=== PATIENT | female | born 1945 | race Caucasian/White ===

== ENCOUNTER → 2021-01-23 02:01 | Outpatient (CLI) | payer MEDICARE, SELFPAY ==
[2021-01-23 19:56] LABS: SARS-CoV-2 RNA PCR Negative
== END ==
PROVIDERS: PCP Family Medicine; Visit Provider Internal Medicine Gastroenterology
DX: Z01.812 Encounter for preprocedural laboratory examination (principal); Z20.822 Contact with and (suspected) exposure to COVID-19
CPT/HCPCS: C9803; U0003; U0005

== ENCOUNTER 2021-01-26 02:54 | Day surgery (SDC) | payer MEDICARE, SELFPAY ==
[2021-01-19 10:24] VITALS: BMI 29.2
[2021-01-26 10:10] VITALS: BP 138/93; PULSE 102; RESP 20; TEMP 36.2; O2SAT 98
[2021-01-26] MEDS: LACTATED RINGERS 1,000 ML 150 ML IV CONT (10:25)
--- NOTE | 2021-01-26 10:26 | WPDGICN ---
Assessment and Plan Assessment and plan (1) Rectal bleeding: Code(s): K62.5 - Hemorrhage of anus and rectum Status: Acute Assessment and Plan: Patient has had rectal/ lower GI bleeding. The etiology is unclear. Somewhat suspicious for hemorrhoidal or diverticular bleeding. Other lesions cannot be excluded. Plan to proceed with colonoscopy to assess more thoroughly. Further recommendations will be given after endoscopy. (2) Abdominal pain: Code(s): R10.9 - Unspecified abdominal pain Status: Acute Assessment and Plan: Patient had brief poorly described abdominal discomfort associated with a time period where she had blood in her stools. The etiology of this remains unclear. Pain is subsequently abated. Will see if any findings on colonoscopy correlate with this discomfort. Fiber stool softeners may be the best long-term approach at this time. GI Consult Note Consult date/time: 01/26/21 10:26 HPI: Merle Benitez is a 75 year old female Presents for evaluation of rectal/lower GI bleeding. Patient in usual state of health till the middle of January on 01/11 in for several days subsequently, where she noticed dark stool on her tissue paper. There was some dark blood in her bowel movements. She had vague abdominal discomfort associated with this. She denies any fever. She has had no weight loss. Her bowel movements have returned to normal in the interim. patient has not had bleeding previously and it has abated in have returned to normal subsequently. Review of Systems Review of Systems: All systems reviewed & are unremarkable except as noted in HPI and below PMFSH Past Medical History Medical History Family history of ischemic heart disease and other diseases of the circulatory system Family history of malignant neoplasm of breast Heme + stool Obesity (BMI 30.0-34.9) Family History Family History Sibling Patient's brother is in good health Family history of malignant neoplasm Family history of lung cancer Mother Acute myocardial infarction, Onset Age: 88 Father Family history of pancreatic cancer, Onset Age: 79 Other Family history of ischemic heart disease and other diseases of the circulatory system Family history of malignant neoplasm of breast Social History Social History Smoking status: Never smoker Alcohol intake: never Substance use: never Substance use type: does not use Living arrangements: with family Meds Home Medications and Allergies Home Medications Medication Instructions Recorded Confirmed Type B tnfqufv-[id number] acid-Zn 1 tablet PO DAILY 01/19/21 01/19/21 History amlodipine 5 mg PO DAILY 01/19/21 01/19/21 History bupropion HCl 150 mg PO DAILY 01/19/21 01/19/21 History cholecalciferol (vitamin D3) 25 mcg PO EVERY OTHER DAY 01/19/21 01/19/21 History [Vitamin D3] metoprolol succinate 25 mg PO DAILY 01/19/21 01/19/21 History Allergies Allergy/AdvReac Type Severity Reaction Status Date / Time gabapentin Allergy Severe Rash Verified 01/26/21 10:09 meperidine Allergy Severe Anaphylactic Verified 01/26/21 10:09 Shock Sulfa (Sulfonamide Allergy Severe Anaphylactic Verified 01/26/21 10:09 Antibiotics) Shock benazepril Allergy Intermediate cough Verified 01/26/21 10:09 phenazopyridine Allergy Intermediate Unknown Verified 01/26/21 10:09 suvorexant AdvReac Severe nightmares Verified 01/26/21 10:09 trazodone AdvReac Severe nightmares Verified 01/26/21 10:09 irbesartan AdvReac Intermediate headache Verified 01/26/21 10:09 penicillin V AdvReac Intermediate Hyperactive Verified 01/26/21 10:09 Penicillins AdvReac Intermediate Hyperactive Verified 01/26/21 10:09 Vital Signs Vital Signs - 24 hr 01/26/21 10:10 Temperature 97.2 F L P
--- NOTE | 2021-01-26 10:35 | WPDANESEPPF ---
Anes - Initial Pre Proc Eval Procedure: Operation Date: 01/26/21 12:45 Proposed Procedures p Colonoscopy - Diogo Bragg MD Date/Time: 01/26/21 10:35 Surgeon: Diogo Bragg MD Pre Op Diagnosis: rectal bleed Patient Data Age: 75 Gender: F Height: 5 ft 6 in Weight: 79.6 kg Last Vital Signs Temp 97.2 F L 01/26/21 10:10 Pulse 102 H 01/26/21 10:10 Resp 20 01/26/21 10:10 BP 138/93 H 01/26/21 10:10 Pulse Ox 98 01/26/21 10:10 Allergies Allergy/AdvReac Type Severity Reaction Status Date / Time gabapentin Allergy Severe Rash Verified 01/26/21 10:09 meperidine Allergy Severe Anaphylactic Verified 01/26/21 10:09 Shock Sulfa (Sulfonamide Allergy Severe Anaphylactic Verified 01/26/21 10:09 Antibiotics) Shock benazepril Allergy Intermediate cough Verified 01/26/21 10:09 phenazopyridine Allergy Intermediate Unknown Verified 01/26/21 10:09 suvorexant AdvReac Severe nightmares Verified 01/26/21 10:09 trazodone AdvReac Severe nightmares Verified 01/26/21 10:09 irbesartan AdvReac Intermediate headache Verified 01/26/21 10:09 penicillin V AdvReac Intermediate Hyperactive Verified 01/26/21 10:09 Penicillins AdvReac Intermediate Hyperactive Verified 01/26/21 10:09 Home Medications Medication Instructions Recorded Confirmed Type B eltztxh-R-drayu acid-Zn 1 tablet PO DAILY 01/19/21 01/19/21 History amlodipine 5 mg PO DAILY 01/19/21 01/19/21 History bupropion HCl 150 mg PO DAILY 01/19/21 01/19/21 History cholecalciferol (vitamin D3) 25 mcg PO EVERY OTHER DAY 01/19/21 01/19/21 History [Vitamin D3] metoprolol succinate 25 mg PO DAILY 01/19/21 01/19/21 History Patient hx anesthesia problems: none Family hx anesthesia problems: none PMFSH Past Medical History Medical History Family history of ischemic heart disease and other diseases of the circulatory system Family history of malignant neoplasm of breast Heme + stool Obesity (BMI 30.0-34.9) Family History Family History (Reviewed 01/18/21 @ 10:04 by Angelica Sidhu [facility]) Sibling Patient's brother is in good health Family history of malignant neoplasm Family history of lung cancer Mother Acute myocardial infarction, Onset Age: 88 Father Family history of pancreatic cancer, Onset Age: 79 Other Family history of ischemic heart disease and other diseases of the circulatory system Family history of malignant neoplasm of breast Social History Social History (Reviewed 01/18/21 @ 10:04 by Angelica Sidhu [facility]) Smoking status: Never smoker Alcohol intake: never Substance use: never Substance use type: does not use Living arrangements: with family Madays - Brie Final PreProcedure Day of Procedure 01/26/21 10:35 Patient weight: obese Lungs: clear to auscultation Airway: Mallampati scale class II Neurological: alert and oriented Last oral intake: >/= 8 hours ASA classification: III Emergent: no Anesthetic plan: proceed Anesthesia type and monitoring: general GIVS and standard monitoring Informed Consent: The patient's anesthetic plan and its attendant risks and benefits were discussed with the patient/family/POA. Questions were solicited and answers provided to the satisfaction of the patient/family/POA.
[2021-01-26 11:03] VITALS: BP 100/60; PULSE 78; RESP 18; O2SAT 98
[2021-01-26 11:13] VITALS: BP 99/65; PULSE 72; RESP 18; O2SAT 100
[2021-01-26 11:23] VITALS: BP 107/69; PULSE 71; RESP 18; O2SAT 100
== END 2021-01-26 11:29 | disposition home or self-care (01) ==
PROVIDERS: PCP Family Medicine; Visit Provider Internal Medicine Gastroenterology
PROC: 0DJD8ZZ Inspection of Lower Intestinal Tract, Via Natural or Artificial Opening Endoscopic (ICD-10-PCS; CPT 45378; principal; 2021-01-26 12:45)
DX: K62.5 Hemorrhage of anus and rectum (principal); D12.2 Benign neoplasm of ascending colon; E66.9 Obesity, unspecified; K64.8 Other hemorrhoids
CPT/HCPCS: 45385; 88305; C9803; J2704; J7120; U0003; U0005

== ENCOUNTER → 2021-08-04 12:06 | Outpatient (CLI) | payer MEDICARE, SELFPAY ==
--- NOTE | ~2021-08-04 | US_ITS ---
EXAMINATION: US renal BI EXAM DATE: 08/04/2021 12:24 INDICATION: I12.9 - Hypertensive chronic kidney disease with stage 1 TECHNIQUE: Multiple grayscale and Doppler images of the kidneys were obtained (by a technologist who performed the scan) and subsequently reviewed. There is no prior study for comparison. FINDINGS: Right kidney: There is normal contour and echogenicity. It measures 9.7 x 4.0 x 4.5 centimeters. Th ere are no focal renal lesions identified. There is no hydronephrosis. Left kidney: There is normal contour and echogenicity. It measures 9.2 x 4.5 x 4.0 centimeters. The re are no focal renal lesions identified. There is no hydronephrosis. Bladder unremarkable. IMPRESSION: 1. Sonographically unremarkable kidneys. Reviewed, dictated and finalized at location A. [employer] MAINTENANCE SUPERVISOR
== END ==
PROVIDERS: PCP Family Medicine; Visit Provider Family Medicine
DX: I12.9 Hypertensive chronic kidney disease with stage 1 through stage 4 chronic kidney disease, or unspecified chronic kidney disease (principal); N18.30 Chronic kidney disease, stage 3 unspecified
CPT/HCPCS: 76775

== ENCOUNTER → 2021-12-14 11:32 | Outpatient (CLI) | payer MEDICARE, SELFPAY ==
--- NOTE | ~2021-12-14 | DEXA_ITS ---
Bone Density Report Name: BERNICE CULP Age: 76 Sex: Female Ethnicity: White Date of : 1945 Indication: postmenopausal; screening for osteoporosis; height loss; prior fracture; Referring Provider: AMITA ESTEVEZ Study: Bone densitometry was performed. Exam Date: December 14, 2021 Accession number: [id number] Bone Density: Region BMD T-score Z-score Classification AP Spine (L1-L4) 0.867 -1.6 0.8 Osteopenia Femoral Neck (Left) 0.644 -1.8 0.3 Osteopenia Total Hip (Left) 0.797 -1.2 0.6 Osteopenia Femoral Neck (Right) 0.675 -1.6 0.5 Osteopenia Total Hip (Right) 0.786 -1.3 0.5 Osteopenia Total Hip Mean 0.792 -1.3 0.6 Osteopenia World Health Organization criteria for BMD impression classify patients as: Normal (T-score at or above -1.0), Osteopenia (T-score between -1.0 and -2.5), or Osteoporosis (T-score at or below -2.5). 10-year Fracture Risk(1): Major Osteoporotic Fracture 19% Hip Fracture 4.2% Reported Risk Factors: [place] (), Neck BMD=0.644, BMI=28.1, previous fracture (1) FRAX(R) Version 3.08. Fracture probability calculated for an untreated patient. Fracture probability may be lower if the patient has received treatment. Clinical Information Provided by Patient: Has had a low trauma fracture Has used the following medications: Vitamin D Patient maximum height was 66.0 Menopause Age: 53 Does not regularly consume dairy products Drinks caffeinated beverages Onset of menses at age 13 Number of children 5 Impression: The patient has low bone mass, based on the Left Femoral Neck T-score. The patient has an estimated ten-year risk of hip fracture of 4.2% and an estimated ten-year risk of major fracture of 19%, based on the WHO FRAX algorithm. The patient has risk factors, including: previous fracture. Discussion: BONE DENSITY IS LOW AT ONE OR MORE SKELETAL SITES. THE PATIENT'S BMD AND CLINICAL RISK FACTORS CONTRIBUTE TO THIS PATIENT'S INCREASED RISK OF FRACTURE. This patient's lowest T-score is low at one or more skeletal sites. It meets the World Health Organization's (WHO) criteria for ?low bone mass? (T-score between -1.0 and -2.5). The patient's 10-year risk of hip fracture as calculated by FRAX exceeds the threshold where pharmacological therapy is recommended by the National Osteoporosis Foundation (NOF). However, all treatment decisions require clinical judgment and consideration of individual patient factors, including patient preferences, comorbidities, previous drug use, risk factors not captured in the FRAX model (e.g., frailty, falls, vitamin D deficiency, increased bone turnover, interval significant decline in bone density) and possible under or overestimation of fracture risk by FRAX. The patient should follow a healthful lifestyle (good nutrition with adeq
--- NOTE | ~2021-12-14 | MM_ITS ---
EXAMINATION: MM screening coco BI w narayan HISTORY: Screening mammogram TECHNIQUE: Craniocaudal and mediolateral oblique 3-D tomosynthesis images were obtained and synthetic 2-D images were generated. CAD analysis was submitted and interpreted. COMPARISON: 12/05/2016 bilateral screening mammogram BREAST PARENCHYMAL COMPOSITION: There are scattered areas of fibroglandular density. FINDINGS: There is no evidence of suspicious mass, calcification, or architectural distortion to sugg est malignancy in either breast. There has been no suspicious interval change. IMPRESSION: 1. No mammographic evidence of malignancy. 2. Recommend routine screening mammography in one year. BI-RADS Category 1: Negative Reviewed, dictated and finalized at location A.
== END ==
PROVIDERS: PCP Family Medicine; Visit Provider Family Medicine
DX: Z12.31 Encounter for screening mammogram for malignant neoplasm of breast (principal); Z78.0 Asymptomatic menopausal state; M85.88 Other specified disorders of bone density and structure, other site; M85.852 Other specified disorders of bone density and structure, left thigh; M85.851 Other specified disorders of bone density and structure, right thigh
CPT/HCPCS: 77063; 77067; 77080

== ENCOUNTER 2022-01-07 07:21 | Outpatient (CLI) | payer MEDICARE, SELFPAY ==
--- NOTE | 2022-01-12 13:51 | WPDHOMESLEEP ---
Sleep Study - Home Unattended Date of Study: 01/07/22 Ordering Provider: Hever Cartagena APRN Interpreting Provider: Nae Casarez MD Home Sleep Study Type: Apnea Link Air Height: 1.63 m Weight: 75.16 kg Body Mass Index: 28.4 Neck Circumference (inches): 14 [place]: 3 Reason for Sleep Study Poor quality sleep that occurred after menopause, no improvement with Belsomra or melatonin Sleep History Merle Benitez is a 76 year old female with poor quality sleep that occurred after menopause. In 2007 she sought medical help. She has used L summer 10 mg at night which did not help her and melatonin in 2017 which did not help. She wakes up throughout the night including the focus puller hours. She follows good sleep hygiene by keeping regular bedtime, she does not eat within 3 hours before bedtime, her room is cool, she is exposed to [place] in the morning, she walks on an exercise trail and turns off her electronics at 8:00 p.m.. She has excellent sleep hygiene. She does not awaken from sleep feeling short of breath or awaken at night with heartburn the [place] or coughing. She rarely snores. She does not snore loudly enough that others complain about it. She occasionally has trouble sleeping with a cold. She does not wake up gasping for breath at night. She does not have breathing problems at night observed by others. She does not sweat excessively at night. She rarely notices her heart pounding or beating irregularly during the night. She occasionally falls asleep during the day. She rarely falls asleep involuntarily. She does not fall asleep while driving. she does not have loss of muscle tone with strong emotion or daytime difficulties due to excessive sleepiness. She does not feel paralyzed on waking falling asleep. She rarely has vivid dreamlike scenes upon awakening or falling asleep. She does not feel afraid of going to sleep. She rarely has nightmares. She occasionally remembers her dreams, occasionally has racing thoughts. She occasionally has feelings of sadness or depression. She frequently has anxiety. She does not have muscular tension, does not notice parts of her body jerking and does not kick at night. She does not have crawling and aching feelings in her legs. She occasionally has leg pain at night. She does not have morning jaw pain. She rarely grinds her teeth during sleep. She occasionally has bothered by pain during the day and occasionally awakened by pain at night. She frequently wakes up feeling stiff in the morning with sore achy muscles and pain in the neck and spine. She has fatigue, memory problems and insomnia. Normal bedtime is 9:00 p.m. taking 15-20 minutes fall asleep typically waking twice during the night. When she awakens she stays awake between 10 minutes and 4 hours. When she is awake at night she will list and relaxing music. If she is fully awake she will read. She wakes the morning at 3:00 a.m.. She estimates getting 4-5 hours of sleep on an average night. She feels physically tired and sick with pain constantly which she attributes to her poor sleep. She reports that she does not take naps. She reports that she is refreshed sometimes after a 10-15 minute nap. She is usually drowsy for 2 hours after waking. She feels better in the afternoon compared other times of day. Habits: Never smoked tobacco. Caffeine 6 oz a day. No alcohol or recreational drugs. [facility] Past Medical History Medical History (Updated 01/12/22 @ 14:02 by Nae Casarez MD) Abdominal pain Anxiety disorder, unspecified CKD (chronic kidney disease) stage 3, GFR 30-59 ml/min Essential (primary) hypertension Family history of ischemic heart disease and other diseases of the circulatory system Family history of malignant neoplasm of breast Heme + stool Mixed hyperlipidemia Rectal bleeding Surgical History Surgical History Hx of colonoscopy 5.25.
[2022-01-12 14:07] VITALS: BMI 28.4
== END 2022-01-11 10:09 | disposition home or self-care (01) ==
LOC: ANHCSM 07:22
PROVIDERS: PCP Family Medicine; Visit Provider Nurse Practitioner Family
DX: G47.9 Sleep disorder, unspecified (principal); G47.33 Obstructive sleep apnea (adult) (pediatric)
CPT/HCPCS: 95806

== ENCOUNTER 2022-01-19 09:02 | Outpatient (CLI) | payer MEDICARE, SELFPAY ==
--- NOTE | 2022-02-01 15:04 | WPDSLEEPSTUD ---
Sleep Study Date of Study: 01/19/22 Ordering Provider: Hever Cartagena APRN Interpreting Physician: Andreina Rosas, Sleep Study Type: CPAP Titration Height: 1.65 m Weight: 74.843 kg Body Mass Index: 27.4 Neck Circumference (inches): 14 [place]: 5 Reason for Sleep Study The patient had an HSAT on 01/07/2022 that showed an AHI of 19.1 with desaturation down to 77%. It was recommended that she have a PAP Titration study. Sleep History Merle Benitez is a 76 year old? female with poor quality sleep that occurred after menopause.? In 2007 she sought medical help.? She has used Belsomra 10 mg at night which did not help her and melatonin in 2016 which did not help.? 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 She follows good sleep hygiene by keeping regular bedtime, she does not eat within 3 hours before bedtime, her room is cool, she is exposed to [place] in the morning, she walks on an exercise trail and turns off her electronics at 8:00 p.m..? She has excellent sleep hygiene.? She does not awaken from sleep feeling short of breath or awaken at night with heartburn the [place] or coughing.? She rarely snores.? She does not snore loudly enough that others complain about it.? She occasionally has trouble sleeping with a cold.? She does not wake up gasping for breath at night.? She does not have breathing problems at night observed by others.? She does not sweat excessively at night.? She rarely notices her heart pounding or beating irregularly during the night.? She occasionally falls asleep during the day.? She rarely falls asleep involuntarily.? She does not fall asleep while driving. ? She does not have loss of muscle tone with strong emotion or daytime difficulties due to excessive sleepiness.? She does not feel paralyzed on waking falling asleep.? She rarely has vivid dreamlike scenes upon awakening or falling asleep.? She does not feel afraid of going to sleep.? She rarely has nightmares.? She occasionally remembers her dreams, occasionally has racing thoughts.? She occasionally has feelings of sadness or depression.? She frequently has anxiety.? She does not have muscular tension, does not notice parts of her body jerking and does not kick at night.? She does not have crawling and aching feelings in her legs.? She occasionally has leg pain at night.? She does not have morning jaw pain.? She rarely grinds her teeth during sleep.? She occasionally has bothered by pain during the day and occasionally awakened by pain at night.? She frequently wakes up feeling stiff in the morning with sore achy muscles and pain in the neck and spine.? She has fatigue, memory problems and insomnia. Normal bedtime is 9:00 p.m. taking 15-20 minutes fall asleep typically waking twice during the night.? When she awakens she stays awake between 10 minutes and 4 hours.? When she is awake at night she will list and relaxing music.? If she is fully awake she will read.? She wakes the morning at 3:00 a.m..? She estimates getting 4-5 hours of sleep on an average night. ? She feels physically tired and sick with pain constantly which she attributes to her poor sleep.? ? She reports that she does not take naps.? She reports that she is refreshed sometimes after a 10-15 minute nap.? She is usually drowsy for 2 hours after waking.? She feels better in the afternoon compared other times of day. Habits: ? Never smoked tobacco.? Caffeine 6 oz a day.? No alcohol or recreational drugs. [facility] Past Medical History Medical History Abdominal pain Anxiety disorder, unspecified CKD (chronic kidney disease) stage 3, GFR 30-59 ml/min Essential (primary) hypertension Family history of ischemic heart disease and other diseases of the circulatory system Family history of malignant neoplasm of breast Heme + stool Mixed hyperlipidemia Rectal bleeding Surgical History Surgical History (Reviewed 02/01/22 @ 15:07 by Valerie
[2022-02-01 17:21] VITALS: BMI 27.4
== END 2022-01-20 05:35 | disposition home or self-care (01) ==
LOC: ANHCSM 09:02
PROVIDERS: PCP Family Medicine; Visit Provider Nurse Practitioner Family
DX: G47.33 Obstructive sleep apnea (adult) (pediatric) (principal)
CPT/HCPCS: 95811

== ENCOUNTER → 2023-02-28 11:07 | Outpatient (CLI) | payer MEDICARE, SELFPAY ==
--- NOTE | ~2023-02-28 | MMUS_ITS ---
EXAMINATION: MM diagnostic coco BI w narayan, US breast BI complete HISTORY: Right lateral breast intermittent pain for one to 2 weeks. Crest CM of discharge from left n ipple for 2 to 3 years. Unexplained 20 pound weight loss. TECHNIQUE: Bilateral full field ML, MLO and CC and spot left MLO 3-D tomosynthesis images were perfor med and synthetic 2-D images were generated. Magnification views of both breasts. Rolled medial crani ocaudal and rolled lateral craniocaudal views of right breast. CAD analysis was submitted and interpr eted. High resolution complete bilateral breast ultrasound examination including all 4 quadrants and subareolar areas was performed. COMPARISON: December 14, 2021, December 05, 2016 bilateral screening mammogram examinations BREAST PARENCHYMAL COMPOSITION: There are scattered areas of fibroglandular density. FINDINGS: MAMMOGRAPHIC FINDINGS: Scattered occasional bilateral benign microcalcifications. No suspicious mass or architectural distor tion, malignant calcification, skin thickening or retraction or significant new or developing density is detected. ULTRASOUND: No suspicious mass or shadowing of either breast is evident. Right breast: 3:00 3 cm from nipple: 3.2 x 3.1 mm circumscribed septated hypoechoic or sonolucent lesion without in ternal vascularity or posterior shadowing, likely benign 6:00 1 cm from nipple: Parallel circumscribed 3.4 x 8.5 x 7.5 mm complex lesion with through transmis susannah, no internal vascularity, likely a benign lesion 8:00 4 cm from nipple: Approximately 2 x 3 x 4 mm parallel circumscribed sonolucency consistent with small cyst Left breast: 2:00 8 cm from nipple: 1.7 x 2.5 mm cyst IMPRESSION: 1. Benign findings 2. Routine annual mammographic screening is recommended BI-RADS Category 2: Benign finding(s). Reviewed, dictated and finalized at location A. IMPRESSION: 1. Benign findings 2. Routine annual mammographic screening is recommended BI-RADS Category 2: Benign finding(s).
== END ==
PROVIDERS: PCP Family Medicine; Visit Provider Physician Assistant
DX: N64.4 Mastodynia (principal)
CPT/HCPCS: 76641; 77062; 77066; G0279

== ENCOUNTER → 2023-03-21 09:09 | Outpatient (CLI) | payer MEDICARE, SELFPAY ==
--- NOTE | ~2023-03-21 | CT_ITS ---
EXAMINATION: CT abdomen pelvis wo con DATE: 03/21/2023 09:26 INDICATION: Periumbilical pain, right inguinal hernia TECHNIQUE: Computed tomography (CT) of the abdomen and pelvis was performed without intravenous contr ast. Automated exposure control and iterative reconstruction technique were employed. Exam dose: 399 .68 mGy-cm total exam DLP. COMPARISON: None. FINDINGS: Bilateral small foramina [place] fat-containing hernias. There is a large hiatal hernia containing transverse colon in the majority of the stomach. There is mild scarring at the lung bases. No pulmonary consolidation is detected. Mild cardiomegaly. No pericardial or pleural effusion. Status post cholecystectomy. No bile duct or pancreatic duct dilatation. Probable 5 mm hepatic cyst. The liver, spleen, pancreas, and adrenal glands are unremarkable on this limited noncontrast examination. No renal mass lesion or renal calculus is evident on either side. The urinary bladder, uterus and adn exal areas are unremarkable. There are numerous bilateral pelvic phleboliths. Normal caliber of the abdominal aorta. No intraperitoneal or retroperitoneal or pelvic mass lesion or adenopathy or ascites is evident. Normal appendix. Diverticulosis of the colon; no CT evidence of diverticulitis. No bowel obstruction, bowel wall thickening, pneumatosis or intraperitoneal free air is detected. There are bilateral fat-containing inguinal hernias and a small fat-containing umbilical hernia. Grade 1 anterolisthesis at L4-5 due to prominent degenerative change at the apophyseal joints. No stu picious osteolytic lesions in the included skeleton are noted. IMPRESSION: Large hiatal hernia containing transverse colon and the majority of the stomach; no obst ruction or strangulation is noted 5 mm hepatic cyst Status post cholecystectomy Diverticulosis of the colon; no CT evidence of diverticulitis Normal appendix Bilateral fat-containing inguinal hernias and small fat-containing umbilical hernia Reviewed, dictated and finalized at Location A. Reviewed, dictated and finalized at location L. IMPRESSION: Large hiatal hernia containing transverse colon and the majority o f the stomach; no obstruction or strangulation is noted 5 mm hepatic cyst Status post cholecystectomy Diverticulosis of the colon; no CT evidence of diverticulitis Normal appendix Bilateral fat-containing inguinal hernias and small fat-containing umbilical he rnia
== END ==
PROVIDERS: PCP Family Medicine; Visit Provider Surgery
DX: R10.33 Periumbilical pain (principal); K57.30 Diverticulosis of large intestine without perforation or abscess without bleeding; K40.20 Bilateral inguinal hernia, without obstruction or gangrene, not specified as recurrent; K44.9 Diaphragmatic hernia without obstruction or gangrene
CPT/HCPCS: 74176

== ENCOUNTER 2023-04-13 12:18 | Outpatient (CLI) | payer MEDICARE, SELFPAY ==
--- NOTE | 2023-04-13 12:22 | ECG_ITS ---
Measurements Intervals [place] Rate: 71 P: 69 VA: 162 QRS: -10 QRSD: 77 T: 62 QT: 384 QTc: 419 Interpretive Statements SINUS RHYTHM NORMAL ECG NO PREVIOUS ECG AVAILABLE FOR COMPARISON Electronically Signed On 04-13-2023 13:08:46 CDT by Thee Spain M.D.
[2023-04-13 12:56] LABS: Anion Gap 7 mmol/L (8-16); Blood Urea Nitrogen 18 mg/dL (7-17); Calcium 9.3 mg/dL (8.4-10.2); Carbon Dioxide 27 mmol/L (22-30); Chloride 103 mmol/L (98-107); Estimated Glomerular Filt Rate 54; Glucose 101 mg/dL (65-110); Potassium 4.6 mmol/L (3.4-5.0); Sodium 137 mmol/L (137-145)
[2023-04-13 12:59] LABS: Partial Thromboplastin Time 28.2 SECONDS (22.3-36.8); Prothrombin Time 13.3 Seconds (11.1-14.7)
== END 2023-04-13 12:19 | disposition home or self-care (01) ==
LOC: ANHSURGERY 12:22
PROVIDERS: Anesthesiology; PCP Family Medicine; Visit Provider Surgery
DX: K40.20 Bilateral inguinal hernia, without obstruction or gangrene, not specified as recurrent (principal); K42.9 Umbilical hernia without obstruction or gangrene; Z01.818 Encounter for other preprocedural examination; I12.9 Hypertensive chronic kidney disease with stage 1 through stage 4 chronic kidney disease, or unspecified chronic kidney disease; N18.30 Chronic kidney disease, stage 3 unspecified
CPT/HCPCS: 36415; 80048; 85610; 85730; 86850; 86900; 86901; 93005

== ENCOUNTER 2023-04-18 04:08 | Day surgery (SDC) | payer MEDICARE, SELFPAY ==
[2023-04-11 14:16] VITALS: BMI 24.2
--- NOTE | 2023-04-11 14:52 | PC.NURSE ---
Report to the Outpatient Waiting Room, entrance under the green pavilion located off [facility], at time _6:00AM on date ___04/18/23____. Planned Procedure Time: __7:30AM . Time changes happen often and if your time is changed the preop area will call you the afternoon before. - You and your visitor will be asked to self-screen and do not enter if you have any COVID symptoms. - A mask is optional within the hospital at this time. Patients may have clear liquids (water, carbonated beverages, clear teas, apple juice) until 3 hours prior to surgery with a maximum of 20 ounces. - No food from midnight until time of surgery Take the following medications with a SIP of water the morning of surgery: ___AMLODIPINE DO NOT STOP ANY OF YOUR OTHER PRESCRIPTION MEDICATIONS PRIOR TO SURGERY ?EXCEPT THE FOLLOWING Medications to discontinue per physician ___HOLD ALL VITAMINS/SUPPLEMENTS 3 DAYS PRE-OP PER ANESTHESIA Date to take last dose 04/14/23 Please no make-up, nail austrian, hairspray, perfume, deodorant, or body powder the day of surgery. No jewelry (including any body piercings) or valuables the day of surgery, leave them at home. Please take a shower or bath the night before, or the morning of, surgery with an antibacterial soap. Wear comfortable, loose fitting clothing. Children are encouraged to wear pajamas. - Jewelry must be removed prior to entering the operating room. Rings and piercings that are not removed may be cut off. - The hospital will not accept responsibility for valuables. - Please leave all valuables, including medications, at home the day of surgery. If you are going home after surgery, a licensed auto parts delivery driver must drive you home. - NO public transportation without another adult if you receive anesthesia. - We recommend that an adult stay with you for 24 hours following discharge. - We also recommend that you do not drive, make important decision, drink alcoholic beverages, or take any drugs that were not prescribed by your health care provider for at least 24 hours after your discharge time. Follow any additional instructions given to you from your surgeon. HIBICLENS SHOWER MORNING OF SURGERY If you or anyone in your household have experienced Covid symptoms in the past week, please notify your surgeon or the nurse liaison at the phone number below for possible testing. Telephone instructions given to __PATIENT AND HUSBAND and asked if any additional questions and then verbalized understanding. Patient advised to call surgeon office or pre surgery nurse liaison [phone] if any additional questions.
[2023-04-18] VITALS (14 sets, daily range): BP systolic 96–132; BP diastolic 46–74; PULSE 65–93; RESP 12–20; TEMP 36.2–36.5; O2SAT 97–100; BMI 24.0
[2023-04-18] MEDS: LACTATED RINGERS 1,000 ML 30 ML IV CONT ×3 (06:25→11:29)
--- NOTE | 2023-04-18 06:52 | WPDANESEPPF ---
Anes - Initial Pre Proc Eval Procedure: Operation Date: 04/18/23 07:30 Proposed Procedures p Laparoscopic Bilateral Inguinal Hernia Repair with Mesh, Davinci Assisted, - Mark Salazar DO s Open Umbilical Hernia Repair - Mark Salazar DO Date/Time: 04/18/23 06:52 Surgeon: Mark Salazar DO Pre Op Diagnosis: bilat inguinal hernia, umbilical hernia Patient Data Age: 77 Gender: F Height: 1.63 m Weight: 64 kg Allergies Allergy/AdvReac Type Severity Reaction Status Date / Time meperidine Allergy Severe Anaphylactic Verified 04/11/23 14:10 Shock Sulfa (Sulfonamide Allergy Severe Anaphylactic Verified 04/11/23 14:10 Antibiotics) Shock gabapentin Allergy Intermediate Rash Verified 04/11/23 14:10 phenazopyridine Allergy Intermediate Unknown Verified 04/11/23 14:10 suvorexant AdvReac Severe nightmares Verified 04/11/23 14:10 trazodone AdvReac Severe nightmares Verified 04/11/23 14:10 benazepril AdvReac Intermediate cough Verified 04/11/23 14:10 irbesartan AdvReac Intermediate headache Verified 04/11/23 14:10 Penicillins AdvReac Intermediate Hyperactive Verified 04/11/23 14:10 Home Medications Medication Instructions Recorded Confirmed Type B iemasjz-Z-[id number] acid-Zn tablet 1 tablet PO DAILY 01/19/21 04/11/23 History cholecalciferol (vitamin D3) 25 25 mcg PO EVERY OTHER DAY 01/19/21 04/11/23 History mcg (1,000 unit) capsule (Vitamin D3) magnesium 200 mg tablet 400 mg PO DAILY 02/24/22 04/11/23 History vitamin E (dl, acetate) 45 mg (100 45 mg PO EVERY OTHER DAY 02/24/23 04/11/23 History unit) capsule acetaminophen 325 mg capsule 325 mg PO ONCE 04/11/23 04/11/23 History (Tylenol) amlodipine 5 mg tablet 5 mg PO QAM 04/11/23 04/11/23 History diphenhydramine HCl 25 mg capsule 25 mg PO HS PRN Insomnia 04/11/23 04/11/23 History (Benadryl) triamcinolone acetonide 0.1 % 1 applic topical TID PRN Itching 04/11/23 04/11/23 History topical cream Patient hx anesthesia problems: none Family hx anesthesia problems: none Results Review: All pre-operative results and documents have been reviewed as part of the pre-operative evaluation. [facility] Past Medical History Medical History Abdominal pain Anxiety disorder, unspecified CKD (chronic kidney disease) stage 3, GFR 30-59 ml/min Essential (primary) hypertension Family history of ischemic heart disease and other diseases of the circulatory system Family history of malignant neoplasm of breast Heme + stool Mixed hyperlipidemia statin refused. Rectal bleeding Surgical History Surgical History Hx of colonoscopy 5.. colonoscopy : ascending colon polyp/hemmies. repeat in 5 years S/P cholecystectomy 1976 Family History Family History Sibling Patient's brother is in good health Family history of malignant neoplasm Family history of lung cancer Mother Acute myocardial infarction, Onset Age: 88 Father Family history of pancreatic cancer, Onset Age: 79 Other Family history of ischemic heart disease and other diseases of the circulatory system Family history of malignant neoplasm of breast Social History Social History Smoking status: Never smoker Alcohol intake: never Substance use: never Substance use type: does not use Lack of Transportation: No Lack of Food: Never True Current Housing: I Have Housing Concerned About Future Housing: No Difficulty Paying Gas/Electric Bills: No Difficulty Paying for Meds: No Currently Unemployed: No Education: High School Diploma/GED Difficulty w/ Childcare or Family Care: No Living arrangements: with family Spiritual care concerns: No Anes - Eval Final PreProcedure Day of Procedure 04/18/23 0
[2023-04-18] MEDS: ACETAMINOPHEN 500 MG TABLET 1000 MG PO (07:12)
[2023-04-18] MEDS: KETOROLAC 15 MG/ML VIAL (*BKC) IV PUSH (07:14)
--- NOTE | 2023-04-18 07:14 | PM.IMHP ---
H&P: HPI History of Present Illness Date/Time: 04/18/23 07:14 Chief Complaint: bilateral inguinal hernia, umbilical hernia Narrative: 77 yo woman presents for bilateral inguinal hernia repair and umbilical hernia repair. She reports no changes since last seen in office. Review of Systems Review of Systems: All systems reviewed & are unremarkable except as noted in HPI and below Constitutional: Constitutional: Denies chills, Denies fever(s), Denies headache(s) and Denies weight loss Eyes: Eyes: Denies change in vision ENT: Denies dizziness, Denies headache(s), Denies neck mass and Denies throat swelling Cardiovascular: Cardiovascular: Denies chest pain, Denies lightheadedness and Denies dyspnea Respiratory: Respiratory: Denies cough, Denies dyspnea and Denies wheezing Gastrointestinal: Gastrointestinal: Denies abdominal pain, Denies change in bowel habits, Denies nausea and Denies vomiting Genitourinary: Genitourinary: Denies hematuria and Denies dysuria Musculoskeletal: Musculoskeletal: Reports as per HPI Integumentary/Breasts: Skin/Breast: Reports as per HPI Neurologic: Denies dizziness and Denies headache(s) Allergic/Immunologic: Allergic/Immunologic: Denies throat swelling and Denies wheezing PMF Past Medical History Medical History Abdominal pain Anxiety disorder, unspecified CKD (chronic kidney disease) stage 3, GFR 30-59 ml/min Essential (primary) hypertension Family history of ischemic heart disease and other diseases of the circulatory system Family history of malignant neoplasm of breast Heme + stool Mixed hyperlipidemia statin refused. Rectal bleeding Surgical History Surgical History Hx of colonoscopy 5.25.21 colonoscopy : ascending colon polyp/hemmies. repeat in 5 years S/P cholecystectomy 1976 Family History Family History Sibling Patient's brother is in good health Family history of malignant neoplasm Family history of lung cancer Mother Acute myocardial infarction, Onset Age: 88 Father Family history of pancreatic cancer, Onset Age: 79 Other Family history of ischemic heart disease and other diseases of the circulatory system Family history of malignant neoplasm of breast Social History Social History Smoking status: Never smoker Alcohol intake: never Substance use: never Substance use type: does not use Lack of Transportation: No Lack of Food: Never True Current Housing: I Have Housing Concerned About Future Housing: No Difficulty Paying Gas/Electric Bills: No Difficulty Paying for Meds: No Currently Unemployed: No Education: High School Diploma/GED Difficulty w/ Childcare or Family Care: No Living arrangements: with family Spiritual care concerns: No Meds Home Medications and Allergies Home Medications Medication Instructions Recorded Confirmed Type B [id number]-W-ddsbp acid-Zn tablet 1 tablet PO DAILY 01/19/21 04/11/23 History cholecalciferol (vitamin D3) 25 25 mcg PO EVERY OTHER DAY 01/19/21 04/11/23 History mcg (1,000 unit) capsule (Vitamin D3) magnesium 200 mg tablet 400 mg PO DAILY 02/24/22 04/11/23 History vitamin E (dl, acetate) 45 mg (100 45 mg PO EVERY OTHER DAY 02/24/23 04/11/23 History unit) capsule acetaminophen 325 mg capsule 325 mg PO ONCE 04/11/23 04/11/23 History (Tylenol) amlodipine 5 mg tablet 5 mg PO QAM 04/11/23 04/11/23 History diphenhydramine HCl 25 mg capsule 25 mg PO HS PRN Insomnia 04/11/23 04/11/23 History (Benadryl) triamcinolone acetonide 0.1 % 1 applic topical TID PRN Itching 04/11/23 04/11/23 History topical cream Allergies Allergy/AdvReac Type Severity Reaction Status Date / Time meperidine Allergy Severe Anaphylactic
--- NOTE | 2023-04-18 07:17 | WPDHPUPDATE1 ---
History and Physical Update Update Date/Time: 04/18/23 07:17 History and Physical has been reviewed, including an updated exam of the patient. There are NO changes in the patient's condition. Risks, benefits, and alternatives have been discussed and questions answered. Patient agrees to proceed with procedure.
[2023-04-18] MEDS: ceFAZolin 2 GM/D5W 50 ML 2 GM/50 ML BAG IVPB (07:35)
[2023-04-18] MEDS: BUPIVACAINE/EPINEPHRINE 0.25% 10 ML VIAL 30 ML INFILTRATE (08:56)
--- NOTE | 2023-04-18 09:07 | W.PM.PROC2 ---
Procedure Note - Detailed Date of Procedure 04/18/23 Pre-op Diagnosis bilateral inguinal hernia, umbilical hernia Post-op Diagnosis Same (0.5 cm umbilical hernia, direct RIH, indirect LIH) Procedure Performed 1. laparoscopic bilateral inguinal hernia repair with mesh, da Tawny assisted 2. open 0.5 cm umbilical hernia repair Surgeon Mark Salazar, Anesthesia General and Local (0.5% bupivacaine with epinephrine) Indications This is a 77-year-old woman who presented with periumbilical pain and right groin pain for the past couple months. She was found to have a right inguinal hernia on exam but hernia in the periumbilical region was somewhat difficult to appreciate. She did have previous open cholecystectomy and the pain was near the inferior edge of the scar just to the right of the umbilicus. A CT of her abdomen and pelvis was obtained and this showed evidence of a small umbilical hernia and bilateral inguinal hernias. Discussions were made with the patient about treatment options and decision was made to proceed with robotic assisted laparoscopic bilateral inguinal hernia repair with mesh and open umbilical hernia repair. Findings The patient was found to have a 0.5 cm umbilical hernia. The initial port was placed through the hernia defect then the hernia was repaired at the end of the procedure. Patient also had some right lower quadrant adhesions from her prior open cholecystectomy. These adhesions were taken down using laparoscopic scissors. I was able to visualize the remainder of the abdominal wall and safely place the remaining ports. The patient was found to have a direct right inguinal hernia and a small indirect left inguinal hernia. Robotic transabdominal preperitoneal approach was utilized for repair of both sides. Large right and left Bard 3DMax mid meshes were placed overlying each myopectineal orifice. No other significant abnormalities were seen. Description of Procedure Procedure as well as risks, benefits, and alternatives were discussed with the patient. Written consent was obtained and placed in chart prior to procedure. Patient was brought back to surgical suite. She was placed supine on operating table. Time-out was done to confirm patient and procedure. She was then intubated by Anesthesia Department. Her abdomen was prepped and draped in sterile fashion using chlorhexidine prep. 0.5% bupivacaine with epinephrine was infiltrated at each location for incision. A 2 cm transverse incision was made just superior to the umbilicus using a 15 blade scalpel. Blunt dissection was carried out down to the linea alba. The hernia defect was encountered and the umbilical stalk was carefully lifted off the fascia using electrocautery. A vertical incision was made at the linea alba using electrocautery to enlarge the opening for port placement. The peritoneum was then bluntly entered. A 12 millimeter trocar was inserted and carbon dioxide insufflation was used to create a pneumoperitoneum. A camera was inserted and the abdominal cavity was inspected. The patient was placed in slight Trendelenburg position. An 8 millimeter incision was made on the right lateral abdomen and an 8 millimeter trocar was inserted under direct visualization. Another 8 millimeter incision was made in the left lateral abdomen and an 8 millimeter trocar was inserted under direct visualization. The robotic arms were brought up to the patient's bedside and secured to the ports. The camera and instruments were inserted. I then moved over to the robotic console and took control of the camera and instruments. After careful inspection of the abdominal cavity, I began scoring the peritoneum along the right lower quadrant using scissors with electrocautery. The preperitoneal plane was entered and this was carefully dissected caudally along the inferior epigastric vessels. Careful dissection with scissors with electrocautery and blunt dissection was used to continu
[2023-04-18] MEDS: fentaNYL CITRATE INJ (*CRX) 100 MCG/2 ML VIAL 25 MCG IV PUSH ×8 (09:50→10:37)
[2023-04-18] MEDS: ONDANSETRON INJ 4 MG/2 ML VIAL IV PUSH (09:52)
--- NOTE | 2023-04-18 11:28 | SUR.PHASEI ---
1120 - dr. prakash at bedside talking with pt
[2023-04-18] MEDS: oxyCODONE HCL (*CRX) 2.5 MG TAB IR PO (12:24)
== END 2023-04-18 13:50 | disposition home or self-care (01) ==
PROVIDERS: PCP Family Medicine; Visit Provider Surgery
PROC: 8E0Y4CZ Robotic Assisted Procedure of Lower Extremity, Percutaneous Endoscopic Approach (ICD-10-PCS; CPT 49650; principal; 2023-04-18 07:30)
PROC: (CPT 49650; 2023-04-18 07:30)
DX: K40.20 Bilateral inguinal hernia, without obstruction or gangrene, not specified as recurrent (principal); K42.9 Umbilical hernia without obstruction or gangrene; I12.9 Hypertensive chronic kidney disease with stage 1 through stage 4 chronic kidney disease, or unspecified chronic kidney disease; N18.30 Chronic kidney disease, stage 3 unspecified; E78.2 Mixed hyperlipidemia
CPT/HCPCS: 49650; S2900; 36415; 80048; 85610; 85730; 86850; 86900; 86901; 93005; A9270; C1781; J0690; J1100; J1885; J2405; J2704; J3010; J7120

== ENCOUNTER → 2023-09-28 13:02 | Outpatient (CLI) | payer MEDICARE, SELFPAY ==
--- NOTE | ~2023-09-28 | XR_ITS ---
XR chest 2V 09/28/2023 13:15 Indication: Dyspnea Procedure: 2 view chest Comparison: No prior studies for comparison. Findings: Large hiatal hernia. Left basilar atelectasis. No focal pneumonia, edema, pleural effusion or pneumothorax. The lungs are hyperinflated which is consistent with, but not diagnostic of chronic obstructive pulmonary disease. There are cholecystectomy clips. Heart size normal. Impression: 1: Large hiatal hernia with left basilar compressive atelectasis. Reviewed, dictated and finalized at location L. NCIAL RECRUITER Impression: 1: Large hiatal hernia with left basilar compressive atelectasis.
== END ==
PROVIDERS: PCP Family Medicine; Visit Provider Family Medicine
DX: R06.00 Dyspnea, unspecified (principal); K44.9 Diaphragmatic hernia without obstruction or gangrene
CPT/HCPCS: 71046

== ENCOUNTER 2024-12-25 12:52 | Outpatient (CLI) | payer MEDICARE, SELFPAY ==
--- NOTE | ~2024-12-25 | DEXA_ITS ---
Bone Density Report Name: BERNICE CULP Age: 79 Sex: Female Ethnicity: White Date of : 1945 Indication: postmenopausal; screening for osteoporosis; Referring Provider: AMITA ESTEVEZ Study: Bone densitometry was performed. Exam Date: December 25, 2024 Accession number: [id number] Bone Density: Region BMD T-score Z-score Classification AP Spine(L1-L4) 0.831 -2.0 0.6 Osteopenia Femoral Neck (Left) 0.609 -2.2 0.1 Osteopenia Total Hip (Left) 0.791 -1.2 0.7 Osteopenia Femoral Neck (Right) 0.622 -2.0 0.2 Osteopenia Total Hip (Right) 0.745 -1.6 0.4 Osteopenia Total Hip Mean 0.768 -1.4 0.6 Osteopenia World Health Organization criteria for BMD impression classify patients as: Normal (T-score at or above -1.0), Osteopenia (T-score between -1.0 and -2.5), or Osteoporosis (T-score at or below -2.5). 10-year Fracture Risk(1): Major Osteoporotic Fracture 14% Hip Fracture 4.5% Reported Risk Factors: [place] (), Neck BMD=0.609, BMI=22.0 (1) FRAX(R) Version 3.08. Fracture probability calculated for an untreated patient. Fracture probability may be lower if the patient has received treatment. Clinical Information Provided by Patient: Patient maximum height was 54 Menopause Age: 53 No regular weight bearing exercise Does not regularly consume dairy products Drinks caffeinated beverages Onset of menses at age 14 Number of children 5 Impression: The patient has low bone mass, based on the Left Femoral Neck T-score. The patient has an estimated ten-year risk of hip fracture of 4.5% and an estimated ten-year risk of major fracture of 14%, based on the WHO FRAX algorithm. Discussion: BONE DENSITY IS LOW AT ONE OR MORE SKELETAL SITES. THE PATIENT'S BMD AND CLINICAL RISK FACTORS CONTRIBUTE TO THIS PATIENT'S INCREASED RISK OF FRACTURE. This patient's lowest T-score is low at one or more skeletal sites. It meets the World Health Organization's (WHO) criteria for ?low bone mass? (T-score between -1.0 and -2.5). The patient's 10-year risk of hip fracture as calculated by FRAX exceeds the threshold where pharmacological therapy is recommended by the National Osteoporosis Foundation (NOF). However, all treatment decisions require clinical judgment and consideration of individual patient factors, including patient preferences, comorbidities, previous drug use, risk factors not captured in the FRAX model (e.g., frailty, falls, vitamin D deficiency, increased bone turnover, interval significant decline in bone density) and possible under or overestimation of fracture risk by FRAX. The patient should follow a healthful lifestyle (good nutrition with adequate calcium and vitamin D, and appropriate weight-bearing exercise). Follow-Up: Consider a repeat BMD and Vertebral Fracture Assessment (VFA) exam in 2 years or sooner if medically necessary, to reassess this patient's status. Reported by: JADA on 12/25/2024 1:27:00 PM. Reviewed, dictated and finalized at location ADerian ARMSTRONG
== END 2024-12-25 12:53 | disposition home or self-care (01) ==
LOC: ANHIMG 12:56
PROVIDERS: PCP Family Medicine; Visit Provider Family Medicine
DX: Z78.0 Asymptomatic menopausal state (principal); M85.88 Other specified disorders of bone density and structure, other site; M85.852 Other specified disorders of bone density and structure, left thigh; M85.851 Other specified disorders of bone density and structure, right thigh
CPT/HCPCS: 77080

== ENCOUNTER 2025-04-04 09:27 | Emergency (ER) | payer MEDICARE, SELFPAY ==
--- NOTE | ~2025-04-04 | CT_ITS ---
EXAMINATION: CTA chest PE abdomen pel DATE: 04/04/2025 12:29 CDT INDICATION: Shortness of breath and weakness COMPARISON: 03/21/2023 TECHNIQUE: Computed tomographic angiography (CTA) of the chest was performed, along with multiple con tiguous axial images of the abdomen and pelvis with 100 mL Omnipaque-350 intravenous contrast. The do se-length product was 426.28 mGy-cm. Maximum intensity projection 3D-reconstructions of the aorta and other arteries were constructed by the technologist on a separate workstation. FINDINGS/OBSERVATIONS: PULMONARY ARTERIES: No filling defect is identified within the main or proximal pulmonary artery. The main pulmonary artery is not enlarged. THORACIC AORTA: No aneurysmal dilatation or dissection is present. The great vessels are intact LUNGS: Biapical scarring is identified. Redemonstration of a large diaphragmatic hernia with both portions of the stomach as well as bowel id entified within the hernia sac and adjacent compressive atelectasis. The remainder of the lungs are clear. MEDIASTINUM: No morphologically suspicious or pathologically enlarged lymph nodes are identified with in the mediastinum or bilateral axilla. BONES OF THE CHEST: No acute fracture. Significant degenerative disease with moderate kyphosis. No lytic or blastic lesions identified. HEART: The heart is of normal size, without pericardial effusion. LIVER: The liver enhances homogeneously and is not enlarged. GALLBLADDER AND BILIARY SYSTEM: The gallbladder is surgically absent. PANCREAS: The pancreas enhances homogeneously without ductal dilatation. SPLEEN: The spleen enhances homogeneously and is not enlarged. KIDNEYS: Redemonstration of right-sided parapelvic cyst. Asymmetric enhancement of the bilateral kidneys, with the right kidney demonstrating hyperenhancement while the left kidney is somewhat delayed. The origin of the left renal artery is not well visualize d on the current study, secondary to bolus timing.. The remainder of the bilateral kidneys are without hydronephrosis or renal calculi. ADRENAL GLANDS: Unremarkable. GASTROINTESTINAL TRACT: Colonic diverticulosis without surrounding inflammatory change. APPENDIX: The air-filled appendix is of normal caliber (axial series, images 112 through 126) VASCULATURE: No aneurysmal dilatation. Enlargement of the left gonadal vein, a nonspecific finding. LYMPH NODES: No pathologically enlarged or morphologically suspicious lymph nodes within the retroperitoneum or at the root of the mesentery. PELVIC STRUCTURES: The bladder is distended, and otherwise unremarkable. The uterus is anteverted and anteflexed. BODY WALL AND MUSCULOSKELETAL: Findings suggesting prior umbilical hernia repair. Age-appropriate degenerative disease. IMPRESSION: No pulmonary embolus. No aortic dissection. Large hiatal hernia containing nearly the entirety of the stomach as well as multiple loops of aerate d bowel (likely transverse colon). Asymmetric enhancement of the kidneys, with likely delayed enhancement on the left. Reviewed, dictated and finalized at location A. IMPRESSION: No pulmonary embolus. No aortic dissection. Large hiatal hernia containing nearly the entirety of the stomach as well as mu ltiple loops of aerated bowel (likely transverse colon). Asymmetric enhancement of the kidneys, with likely delayed enhancement on the l eft.
--- NOTE | ~2025-04-04 | CT_ITS ---
EXAMINATION: CT brain wo con DATE: 04/04/2025 10:02 INDICATION: Altered mental status TECHNIQUE: Computed tomography (CT) of the head was performed without intravenous contrast. Sagittal and coronal reconstructions were performed. The mA was adjusted according to patient size. Iterative reconstruction technique was employed. The dose-length product was 605.33 mGy-cm. COMPARISON: None FINDINGS: No acute intracranial hemorrhage, acute infarction or abnormal extra axial fluid collection. Small ol d lacunar infarct in the anterior limb of the right internal capsule. There is mild scattered white m atter hypoattenuation consistent with chronic small vessel ischemic disease. Symmetric prominence of the sulci consistent with mild age-appropriate diffuse cerebral volume loss. Ventricles are normal an d symmetric. No mass/mass effect. The orbits, paranasal sinuses and mastoid air cells are normal. IMPRESSION: 1. Age-related changes the brain as well as small old lacunar infarct at the anterior limb of the rig ht internal capsule. No acute intracranial process. Reviewed, dictated and finalized at location A. IMPRESSION: 1. Age-related changes the brain as well as small old lacunar infarct at the an terior limb of the right internal capsule. No acute intracranial process.
--- NOTE | ~2025-04-04 | XR_ITS ---
CHEST RADIOGRAPH, PA AND LATERAL CLINICAL HISTORY: SOB, DIZZY, WEAK . COMPARISON: 09/28/2023 TECHNIQUE: PA and lateral views of the chest. FINDINGS Redemonstration of a large hiatal hernia. The remainder of the cardiomediastinal silhouette is otherwise unremarkable. Redemonstration of bilateral subcentimeter nodularity, likely calcified granulomas (unchanged from ). The lungs are otherwise clear. IMPRESSION: Large hiatal hernia, without focal infiltrate or effusion. Reviewed, dictated and finalized at location A.
[2025-04-04 09:29] VITALS: BP 131/73; PULSE 72; RESP 20; TEMP 36.4; O2SAT 100
--- NOTE | 2025-04-04 09:29 | ECG_ITS ---
Test Date: 2025-04-04 09:31:44 Measurements Intervals [place] Rate: 71 P: 80 [place]: 153 QRS: -11 QRSD: 80 T: 70 QT: 388 QTc: 422 Interpretive Statements SINUS RHYTHM CANNOT R/O SEPTAL INFARCT, AGE INDETERMINATE MINIMAL Q WAVES- HIGH LATERAL LEADS BASELINE ARTIFACT- I, II, AVR, AVL, AVF ABNORMAL ECG No previous ECG available for comparison Electronically Signed On 04-04-2025 09:46:01 CDT by Reddy Holley D.O.
[2025-04-04 09:35] VITALS: PULSE 73; O2SAT 100
[2025-04-04 09:48] LABS: Hematocrit 38.0 % (37.0-47.0); Hemoglobin 12.6 g/dL (12.0-15.0); Mean Corpuscular HGB Conc 33.2 g/dl (32-36); Mean Corpuscular Hemoglobin 30.9 pg (26-34); Mean Corpuscular Volume 93.1 fl (80-100); Platelet Count Result 236 k/mm3 (150-375); Red Blood Count 4.08 M/mm3 (4.2-5.4); White Blood Count 7.0 K/mm3 (4.5-10.0)
--- NOTE | 2025-04-04 09:50 | ED_ITS ---
HPI - Weakness General Chief complaint: Shortness of Breath/Dyspnea Stated complaint: SOB History of Present Illness HPI Narrative: Patient is a 79-year-old presents to the ER with 1 week history of weakness. She and her reports this morning she went outside for a walk and became short of breath. Patient is use to walking 1/2 miles every morning, but 1 week ago she started ?not feeling well. Her reports she has been having some difficulty with memory issues over the past few months. Her p.o. intake has decreased and she has lost weight. Patient's reports she has also been experiencing nausea, increased heart rate, and decreased blood pressure. She has a history of high blood pressure, chronic kidney disease, and insomnia. Patient denies any chest pain, recent fevers, or urinary symptoms. Related Data Home Medications ?Medication ?Instructions ?Recorded ?Confirmed ?Last Taken ?Type B wjamypj-A-zeoeo acid-Zn tablet 1 tablet PO DAILY 01/19/21 01/08/25 04/14/23 History cholecalciferol (vitamin D3) 25 25 mcg PO EVERY OTHER DAY 01/19/21 01/08/25 04/14/23 History mcg (1,000 unit) capsule (Vitamin D3) magnesium 200 mg tablet 400 mg PO DAILY 02/24/22 01/08/25 04/14/23 History vitamin E (dl, acetate) 45 mg (100 45 mg PO EVERY OTHER DAY 02/24/23 01/08/25 04/14/23 History unit) capsule triamcinolone acetonide 0.1 % 1 applic topical TID PRN Itching 04/11/23 01/08/25 Unknown History topical cream Allergies Allergy/AdvReac Type Severity Reaction Status Date / Time meperidine Allergy Severe Anaphylactic Verified 04/04/25 09:38 Shock Sulfa (Sulfonamide Allergy Severe Anaphylactic Verified 04/04/25 09:38 Antibiotics) Shock gabapentin Allergy Intermediate Rash Verified 04/04/25 09:38 phenazopyridine Allergy Intermediate Unknown Verified 04/04/25 09:38 suvorexant AdvReac Severe nightmares Verified 04/04/25 09:38 trazodone AdvReac Severe nightmares Verified 04/04/25 09:38 benazepril AdvReac Intermediate cough Verified 04/04/25 09:38 irbesartan AdvReac Intermediate headache Verified 04/04/25 09:38 Penicillins AdvReac Intermediate Hyperactive Verified 04/04/25 09:38 sertraline AdvReac Intermediate anxiety,cry Verified 04/04/25 09:38 ing Review of Systems 2 Review of Systems: All systems reviewed & are unremarkable except as noted in HPI and below PMFSH Past Medical History Medical History CKD (chronic kidney disease) stage 3, GFR 30-59 ml/min Rectal bleeding Abdominal pain Family history of malignant neoplasm of breast Family history of ischemic heart disease and other diseases of the circulatory system Heme + stool Anxiety disorder, unspecified Essential (primary) hypertension Mixed hyperlipidemia statin refused. Surgical History Surgical History Hx of umbilical hernia repair 1. laparoscopic bilateral inguinal hernia repair with mesh, da Tawny assisted 2. open 0.5 cm umbilical hernia repair on 04/18/23 S/P cholecystectomy 1976 Hx of colonoscopy 01.26.21 colonoscopy : ascending colon polyp/hemmies. repeat in 5 years Family History Family History Sibling Patient's brother is in good health Family history of malignant neoplasm Family history of lung cancer Mother Acute myocardial infarction, Onset Age: 88 Father Family history of pancreatic cancer, Onset Age: 79 Other Family history of ischemic heart disease and other diseases of the circulatory system Family history of malignant neoplasm of breast Social History Social History Smoking status: Never smoker Alcohol intake: never Substance use: never Substance use type: does not use Do You Feel Safe in your Home?: Yes Lack of Transportation: No Lack of Food: Never True Current Housing: I Have Housing Concerned About Future Housing: No Difficulty Paying Gas/Electric Bills: No Difficulty Paying for Meds: No Currently Unemployed: No Education: High School Diploma/GED Difficulty w/ Childcare or Family Care: No Living arrangements: with family Spiritual care concerns: No Exam 2 Narrative: GENERAL: Well appearing, well-nourished, non-toxic, in no acute distress. HEAD: Normocephalic, atraumatic. NECK: Supple. No adenopathy, no masses. RESPIRATORY: Airway patent, respirations nonlabored. Clear to auscultation bilaterally, no rales, rhonchi, wheezing. CARDIOVASCULAR: Regular rate and rhythm without murmurs, rubs, or gallops. Peripheral pulses 2+ and equal bilaterally. ABDOMINAL: Soft, nontender, nondistended, no hepatosplenomegaly. Normoactive BS. MUSCULOSKELETAL: Moves all extremities. Strength/ROM intact without gross deformities. SKIN: Warm, dry, normal color. No rashes. NEURO: A&O X3. Speech clear. Cranial nerves II-XII intact. No ataxic movements. PSYCHIATRIC: Appropriate mood and affect. Normal interaction. Course Vital Signs Vital signs: Vital Signs Temperature 36.4 C 04/04/25 09:29 Pulse Rate 72 04/04/25 09:29 Respiratory Rate 20 04/04/25 09:29 Blood Pressure 131/73 04/04/25 09:29 Pulse Oximetry 100 04/04/25 09:29 Oxygen Delivery Room Air 04/04/25 09:29 Temperature 36.7 C 04/04/25 11:31 Pulse Rate 69 04/04/25 11:31 Respiratory Rate 12 04/04/25 11:31 Blood Pressure 144/74 H 04/04/25 11:31 Pulse Oximetry 100 04/04/25 11:31 Oxygen Delivery Room Air 04/04/25 09:35 MDM - Weakness MDM Narrative Medical decision making narrative: Patient is a 79-year-old presents to the ER with 1 week history of weakness. She and her reports this morning she went outside for a walk and became short of breath. Patient is use to walking 1/2 miles every morning, but 1 week ago she started ?not feeling well. Her reports she has been having some difficulty with memory issues over the past few months. Her p.o. intake has decreased and she has lost weight. Patient's reports she has also been experiencing nausea, increased heart rate, and decreased blood pressure. She has a history of high blood pressure, chronic kidney disease, and insomnia. Patient denies any chest pain, recent fevers, or urinary symptoms. Labs Ordered: CBC, CMP, UA, TSH, proBNP, CK, PTT, INR Imaging Ordered: CT brain, CTA PE chest abdomen pelvis Medications Ordered: 1 L normal saline IV bolus x 2 Results: Patient's CBC indicates an RBC of 4.08. Her CMP indicates a sodium of 133, BUN of 18, creatinine of 1.34, estimated GFR of 38, and glucose of 124. Patient's proBNP is 468. Her TSH is 6.58. Patient's urinalysis indicates a leukocyte of 1+, white blood cell count [address] scan indicates no pulmonary embolus. No aortic dissection. Large hiatal hernia containing nearly the entirety of the stomach as well as multiple loops of aerated bowel (likely transverse colon). Asymmetric enhancement of the kidneys, with likely delayed enhancement on the left. Diagnosis: abnormal thyroid levels, uti Consults: general surgery (outpatient), pt has seen Dr. Salazar in the past for her hernia Patient Education/Shared MDM: Results of lab work and imaging shared with patient. She will be given her first dose of antibiotics here in the ER Patient strongly advised to maintain hydration status upon discharge and follow-up with her PCP as soon as possible regarding her abnormal thyroid levels. She will be discharged home with a prescription for Macrobid. Strict return precautions provided. Patient verbalized understanding and is in agreement with plan. Vital signs stable at time of discharge. All questions answered. Differential Diagnosis Differential diagnosis: Likely anemia, hypothyroidism, rhabdomyolysis, sepsis and dehydration Lab Data Attestation: I reviewed the patient's lab results. 04/04/25 09:41 04/04/25 09:41 Labs: Lab Results 04/04/25 04/04/25 Range/Units 09:41 11:30 WBC 7.0 (4.5-10.0) K/mm3 RBC 4.08 L (4.2-5.4) M/mm3 Hgb 12.6 (12.0-15.0) g/dL Hct 38.0 (37.0-47.0) % MCV 93.1 (80-100) fl MCH 30.9 (26-34) pg MCHC 33.2 (32-36) g/dl RDW 11.5 (11.5-14.5) % Plt Count 236 (150-375) k/mm3 MPV 10.4 (7.4-10.4) fl Immature Gran % (Auto) Not Reportable Neut % (Auto) Not Reportable Lymph % (Auto) Not Reportable [place] % (Auto) Not Reportable Eos % (Auto) Not Reportable Baso % (Auto) Not Reportable Lymph # (Auto) Not Reportable [place] # (Auto) Not Reportable Eos # (Auto) Not Reportable Baso # (Auto) Not Reportable Abs Immat Gran (auto) Not Reportable Absolute Neuts (auto) Not Reportable Absolute Nucleated RBC Not Reportable Total Counted 100 Neutrophils % (Manual) 58 (46-73) % Band Neutrophils % Not Reportable Lymphocytes % (Manual) 27 (18-44) % Monocytes % (Manual) 9 (3-9) % Eosinophils % (Manual) 5 H (0-4) % Basophils % (Manual) 1 (0-1) % Nucleated RBC % Not Reportable Abs Lymphs (Manual) 1.89 (1.1-4.5) K/mm3 Abs Monocytes (Manual) 0.63 (0.1-0.90) K/mm3 Absolute Eos (Manual) 0.35 (0.02-0.50) K/mm3 Abs Basophils (Manual) 0.07 (0.0-0.1) K/mm3 Smudge Cells Few Platelet Estimate Adequate (Adequate) Anisocytosis 1+ Schistocytes None seen PT 13.8 (11.1-14.7) Seconds INR 1.0 APTT 29.9 (22.3-36.8) Seconds Sodium 133 L (137-145) mmol/L Potassium 3.8 (3.4-5.0) mmol/L Chloride 101 (98-107) mmol/L Carbon Dioxide 22 (22-30) mmol/L Anion Gap 10 (4-12) mmol/L BUN 18 H (7-17) mg/dL Creatinine 1.34 H (0.7-1.0) mg/dL Estim Creat Clear Calc 26 ml/min Estimated GFR 38 L (59 - ) Glucose 124 H (65-110) mg/dL Calcium 9.6 (8.4-10.2) mg/dL Total Bilirubin 0.9 (0.2-1.3) mg/dL AST 34 (14-36) U/L ALT 16 (6-35) U/L Alkaline Phosphatase 97 (38-126) U/L Total Creatine Kinase 44 (30-135) U/L NT-Pro-B Natriuret Pep 468 H (19.9-100) pg/mL Total Protein 7.1 (6.3-8.2) g/dL Albumin 3.9 (3.5-5.1) g/dL TSH 6.580 H (0.465-4.680) uIU/mL Urine Color Yellow (Yellow) Urine Appearance Clear (Clear) Urine pH 7.5 (5.0-9.0) Ur Specific [place] 1.007 (1.001-1.035) Urine Protein Negative (Negative) mg/dL Urine Glucose (UA) Negative (Negative) mg/dL Urine Ketones Negative (Negative) mg/dL Ur Blood (Man) Negative (Negative) Urine Nitrate Negative (Negative) Urine Bilirubin Negative (Negative) Urine Urobilinogen 0.2 (<2.0) mg/dL Leukocyte Esterase Rfl 1+ H (Negative) BASSEM/UL Urine RBC 0-2 (0-2) /hpf Urine WBC 11-20 H (0-3) /hpf Ur Squamous Epith Cells None seen (Few) /hpf Urine Bacteria Rare /hpf Urine Casts 0-2 Imaging Data Attestation: I personally reviewed and interpreted this imaging study as follows: Radiologist's impression: Impressions Head CT 04/04/25 10:17 IMPRESSION: 1. Age-related changes the brain as well as small old lacunar infarct at the anterior limb of the right internal capsule. No acute intracranial process. Chest X-Ray 04/04/25 10:33 IMPRESSION: Large hiatal hernia, without focal infiltrate or effusion. Chest/Abdomen/Pelvis CTA 04/04/25 12:20 IMPRESSION: No pulmonary embolus. No aortic dissection. Large hiatal hernia containing nearly the entirety of the stomach as well as multiple loops of aerated bowel (likely transverse colon). Asymmetric enhancement of the kidneys, with likely delayed enhancement on the left. Discharge Plan Discharge Clinical Impression: Abnormal thyroid blood test, Urinary tract infection, Abdominal hernia Patient Disposition: Home Condition: Stable Instructions: Antibiotic Form, Urinary Tract Infection in Older Adults (ED) Additional Instructions: Please return to the ER with any worsening symptoms. Follow-up with primary care provider as soon as possible. Patient also follow-up with General surgery for your abdominal hernia. Take all medications as prescribed, including regularly scheduled medications. Complete your full dose of antibiotics. Patient Language: Serbian Prescriptions: New nitrofurantoin monohyd/m-cryst [Macrobid] 100 mg capsule 100 mg PO Q12H 5 Days Qty: 10 0RF Rx Instructions: must administer with a meal/food No Action magnesium 200 mg tablet 400 mg PO DAILY vitamin E (dl, acetate) 45 mg (100 unit) capsule 45 mg PO EVERY OTHER DAY cholecalciferol (vitamin D3) [Vitamin D3] 25 mcg (1,000 unit) Capsule 25 mcg PO EVERY OTHER DAY B ajdyldy-S-pfbta acid-Zn Tablet 1 tablet PO DAILY triamcinolone acetonide 0.1 % cream 1 applic topical TID PRN (Reason: Itching) diclofenac sodium 0.1 % drops 1 drp ophthalmic (eye) QID 3 Days Qty: 2.5 0RF Follow-up/Referrals: UNKNOWN,DOCTOR [Non-Staff] - Loan Sosa MD [Primary Care Provider] - (primary care) Mark Salazar DO [Physician] - (general surgery (hernia doctor)) Time of Disposition: 13:40
[2025-04-04 10:06] LABS: Alanine Aminotransferase 16 U/L (6-35); Albumin Level 3.9 g/dL (3.5-5.1); Alkaline Phosphatase 97 U/L (38-126); Anion Gap 10 mmol/L (4-12); Aspartate Amino Transferase 34 U/L (14-36); Bilirubin,Total 0.9 mg/dL (0.2-1.3); Blood Urea Nitrogen 18 mg/dL (7-17); Calcium 9.6 mg/dL (8.4-10.2); Carbon Dioxide 22 mmol/L (22-30); Chloride 101 mmol/L (98-107); Estimated CRCL calculation 26 ml/min; Estimated Glomerular Filt Rate 38; Glucose 124 mg/dL (65-110); Potassium 3.8 mmol/L (3.4-5.0); Sodium 133 mmol/L (137-145); Total Protein 7.1 g/dL (6.3-8.2)
[2025-04-04 10:26] LABS: Basophils Absolute Manual 0.07 K/mm3 (0.0-0.1); Basophils Percent Manual 1 % (0-1); Eosinophils Absolute Manual 0.35 K/mm3 (0.02-0.50); Eosinophils Percent Manual 5 % (0-4); Lymphocytes Absolute Manual 1.89 K/mm3 (1.1-4.5); Lymphocytes Percent Manual 27 % (18-44); Monocytes Absolute Manual 0.63 K/mm3 (0.1-0.90); Monocytes Percent Manual 9 % (3-9); Neutrophils Percent Manual 58 % (46-73); Smudge Cells FEW; Total Cells Counted 100
[2025-04-04 10:27] LABS: Anisocytosis 1+; Creatine Kinase 44 U/L (30-135)
[2025-04-04 10:28] LABS: Schistocytes None Seen
[2025-04-04 10:32] LABS: NT Pro B Type Natriuretic Pept 468 pg/mL (19.9-100)
[2025-04-04] MEDS: SODIUM CHLORIDE 0.9% IV 1,000 ML 999 ML IV CONT (10:34)
[2025-04-04 10:41] LABS: INR 1.0; Prothrombin Time 13.8 Seconds (11.1-14.7)
[2025-04-04 10:42] LABS: Partial Thromboplastin Time 29.9 Seconds (22.3-36.8)
[2025-04-04 10:54] LABS: Thyroid Stimulating Hormone 6.580 uIU/mL (0.465-4.680)
[2025-04-04 11:31] VITALS: BP 144/74; PULSE 69; RESP 12; TEMP 36.7; O2SAT 100
[2025-04-04 11:42] LABS: Add Urine Microscopic? YES; Appearance Urine Clear (Clear); Glucose Urine UA Negative (Negative); Leukocyte Esterase Ur 1+ LEU/UL (Negative); Nitrate Urine Negative (Negative); Non Pathogenic Casts 0-2; Specific Grav Ur 1.007 (1.001-1.035)
[2025-04-04] MEDS: SODIUM CHLORIDE 0.9% IV 1,000 ML 500 ML IV CONT (12:15)
[2025-04-04] MEDS: NITROFURANTOIN MONOHYD MACROCR 100 MG CAP PO (13:41)
== END 2025-04-04 13:59 | disposition home or self-care (01) ==
PROVIDERS: Emergency Provider Registered Nurse; PCP Family Medicine
DX: N39.0 Urinary tract infection, site not specified (principal); K44.9 Diaphragmatic hernia without obstruction or gangrene; R94.6 Abnormal results of thyroid function studies; I12.9 Hypertensive chronic kidney disease with stage 1 through stage 4 chronic kidney disease, or unspecified chronic kidney disease; N18.30 Chronic kidney disease, stage 3 unspecified; E78.2 Mixed hyperlipidemia; F41.9 Anxiety disorder, unspecified; Z90.49 Acquired absence of other specified parts of digestive tract; R94.31 Abnormal electrocardiogram [ECG] [EKG]
CPT/HCPCS: 36415; 70450; 71046; 71275; 74177; 80053; 81001; 82550; 83880; 84443; 85025; 85610; 85730; 93005; 96360; 96361; 99284; A9270; J7030; Q9967